=== PATIENT | male | born 1955 ===

== ENCOUNTER 2024-12-03 05:53 | Day surgery (SDC) | payer MEDICARE, BC ==
[2024-12-03] MEDS ORDERED: Midazolam 1 MG/ML 2 ML SDV ONE (06:12)
[2024-12-03] MEDS ORDERED: Midazolam 1 MG/ML 2 ML SDV IV ONE (06:12)
[2024-12-03] MEDS ORDERED: fentaNYL 100 MCG/2 ML SDV ONE (06:12)
[2024-12-03] MEDS ORDERED: fentaNYL 100 MCG/2 ML SDV IV ONE (06:12)
[2024-12-03] MEDS: Dextrose 5%-0.45% NaCl 1,000 ML IV SCH (06:20)
[2024-12-03] MEDS: fentaNYL 100 MCG/2 ML SDV IV ONE ×2 (07:24)
[2024-12-03] MEDS: Midazolam 1 MG/ML 2 ML SDV IV ONE ×5 (07:25→07:36)
== END 2024-12-03 08:47 | disposition home or self-care (01) ==
LOC: DL.ENDO 05:53
PROVIDERS: ATTEND Internal Medicine Gastroenterology
DX: Z12.11 Encounter for screening for malignant neoplasm of colon (principal); K64.8 Other hemorrhoids; K57.30 Diverticulosis of large intestine without perforation or abscess without bleeding; I10 Essential (primary) hypertension; E78.5 Hyperlipidemia, unspecified
CPT/HCPCS: J2250; J3010; J7799